=== PATIENT | male | born 1980 | race African-American/Black ===

== ENCOUNTER 2022-05-23 02:40 | Emergency (ER) | payer SELFPAY ==
[~2022-05-23] VITALS: Ht 180.3 cm; Wt 75.0 kg
[2022-05-23] MEDS ORDERED: LIDOCAINE HCL 1% 20ML VIAL (Pyxis) INJ INFIL ONE (06:15)
[2022-05-23] MEDS ORDERED: LIDOCAINE HCL 1% 10 MG/ML 10ML VIAL IJ NR (06:30)
[2022-05-23] MEDS ORDERED: LIDOCAINE HCL 1% 20ML VIAL (Pyxis) INJ INFIL NR (06:30)
[2022-05-23] MEDS ORDERED: CEPH500C2 MT (06:39)
[2022-05-23] MEDS ORDERED: HYDR-4001 MT (06:39)
[2022-05-23 06:49] VITALS: BP 117/67
== END 2022-05-23 06:51 | disposition home or self-care (01) ==
LOC: ER 02:40
DX: L02.415 Cutaneous abscess of right lower limb (principal)
CPT/HCPCS: 10060; 99283; J3490; Z7610

== ENCOUNTER 2022-05-24 11:17 | Emergency (ER) | payer SELFPAY ==
[~2022-05-24] VITALS: Ht 180.3 cm; Wt 75.0 kg
[~2022-05-24 11:17] MED LIST: CEPH500C2 MT; HYDR-4001 MT
[2022-05-24] MEDS ORDERED: IBUPROFEN 600MG TABLET PO NR (13:30)
[2022-05-24] MEDS ORDERED: CEPHALEXIN 250MG CAPSULE PO NR (13:30)
[2022-05-24 13:42] VITALS: BP 119/67
== END 2022-05-24 13:47 | disposition home or self-care (01) ==
LOC: ER 11:17
DX: Z48.00 Encounter for change or removal of nonsurgical wound dressing (principal); L02.415 Cutaneous abscess of right lower limb
CPT/HCPCS: 99283